=== PATIENT | female | born 1965 | race Caucasian/White ===

== ENCOUNTER 2016-12-06 17:39 | Emergency (ER) | payer BC ==
[~2016-12-06] VITALS: Ht 160 cm; Wt 59.0 kg
[2016-12-06 17:45] VITALS: BP 174/89; PULSE 74; RESP 18; TEMP 98.2; O2SAT 98
--- NOTE | 2016-12-06 17:45 | NUR ---
Patient to ER bed 05 to gown for evaluation. Side rails up. Report given to Nadya.
--- NOTE | 2016-12-06 17:45 | NUR ---
Dr Brock at bedside examining patient
--- NOTE | 2016-12-06 17:46 | NUR ---
Pt brought by self, A&O x4, pt c/o L lower back pain after moving a trash can, skin pink and warm, cap refill <3, VSS, Pt states has Hx of neck and back pain, taking ibuprofen but not helping.
[2016-12-06] MEDS ORDERED: KETOROLAC TROMETHAMINE 60 MG/2 ML VIAL IM ONE (18:00)
[2016-12-06] MEDS ORDERED: DEXAMETHASONE SOD PHOSPHATE 10 MG/ML VIAL IM ONE (18:00)
[2016-12-06] MEDS ORDERED: PROCHLORPERAZINE EDISYLATE 10 MG/2 ML VIAL IM ONE (18:00)
[2016-12-06] MEDS ORDERED: HYDROcodone/ACETAMIN 5-325 MG TAB (NORCO/ VICODIN) PO ONE (18:00)
--- NOTE | 2016-12-06 18:46 | NUR ---
Pt off the unit for X-ray
[2016-12-06 20:22] VITALS: BP 132/82; PULSE 68; RESP 18; TEMP 97.3; O2SAT 98
--- NOTE | 2016-12-06 20:22 | NUR ---
Patient given written and verbal discharge instructions and verbalizes understanding. ER MD discussed with patient the results and treatment provided. Given copies of tests performed in ER. Patient in stable condition. ID arm band removed. Rx of Tramadol given. Patient educated on pain management and to follow up with PMD. Pain Scale 0/10 . Opportunity for questions provided and answered.
== END 2016-12-06 20:22 | disposition home or self-care (01) ==
LOC: SED 17:39
DX: S39.012A Strain of muscle, fascia and tendon of lower back, initial encounter (principal); Z88.2 Allergy status to sulfonamides; X58.XXXA Exposure to other specified factors, initial encounter; Y93.89 Activity, other specified; Y99.8 Other external cause status; Y92.89 Other specified places as the place of occurrence of the external cause
CPT/HCPCS: 72110; 96372; 99284; J0780; J1100; J1885